=== PATIENT | male | born 1950 | race Caucasian/White ===

== ENCOUNTER 2016-11-19 12:06 | Observation (INO) | payer OTHER ==
[~2016-11-19] VITALS: Ht 175.3 cm; Wt 82.1 kg
[~2016-11-19 12:06] MED LIST: BENEMID500 MG PO; FE-2020 MG PO; FLEXERIL10 MG PO; FLOMAX 0.40.4 MG/CAP PO; FLOMAX0.4 MG PO; HCTZ 25MG TAB25 MG PO; INDOCIN SR 75MG75 MG PO; INDOMETHACIN PO; MILLIPRED DP5 MG PO; MULTI VITAMINS1 TAB PO; NIFEDIPINE10 M1 PO; OMEPRAZOLE20 MG PO; OMNICEF 300MG300 MG PO; PERCOCET 325 MG1 TAB PO; PRILOTC PO; PRINIVIL20 MG PO; PRINZIDE 25 MG-1 TAB PO; PROBENECID PO; PROCARDIA XL 6060 MG PO; PROSCAR 5MG5 MG PO; PROSCAR PO; SENORMIN50 MG PO; TENORMIN 5050 MG/TAB PO; ULTRAM 50MG TAB50 MG PO; VESICARE10 MG PO; ZYLOPRIM 300MG300 MG PO
[2016-11-19 13:12] VITALS: BP 153/93; PULSE 85
[2016-11-19 13:19] LABS: BASO % 0.4 % (0.0-2.0); GRAN # 6.6 (1.4-6.5); HEMATOCRIT 41.8 % (42.0-52.0); HEMOGLOBIN 14.5 g/dl (13.5-18.0); LYMPH # 1.1 (1.2-3.4); LYMPH % 12.8 % (20.0-51.0); MEAN CELL VOLUME 95 fl (80.0-100.0); MEAN CORPUSCULAR HEMOGLOBIN 33 pg (27.0-31.0); MEAN CORPUSCULAR HGB CONC 35 g/dl (33.0-37.0); MEAN PLATELET VOLUME 9.3 fl (7.4-10.4); MONO # 0.5 (0.1-0.6); PLATELET COUNT 206 K/mm3 (130-400); RED BLOOD COUNT 4.38 M/mm3 (4.20-5.60); REDCELL DISTRIBUTION WIDTH-CV 12.6 % (11.5-14.5); WHITE BLOOD COUNT 8.3 K/mm3 (4.8-10.8)
[2016-11-19 13:34] LABS: ALANINE AMINOTRANSFERASE 41 U/L (21-72); ALBUMIN 4.4 gm/dL (3.5-5.0); ALKALINE PHOSPHATASE 59 U/L (50-136); ANION GAP 12 mmol/L (7-16); BILIRUBIN,TOTAL 2.3 mg/dL (0.0-1.0); BLOOD UREA NITROGEN 10 mg/dL (9-20); C-REACTIVE PROTEIN 3.1 mg/dL (0.0-0.9); CALCIUM 9.3 mg/dL (8.4-10.2); CARBON DIOXIDE 25 mmol/L (22-30); CREATININE, serum 0.81 mg/dL (0.66-1.25); GLUCOSE 101 mg/dL (74-106); LIPASE 21 U/L (23-300); POTASSIUM 4.7 mmol/L (3.4-5.0); SODIUM 126 mmol/L (137-145); TOTAL PROTEIN 7.7 gm/dL (6.4-8.2)
[2016-11-19 13:35] LABS: PH 6 (5-8); SQUAMOUS EPITHELIAL 0-2 /hpf; URINE APPEARANCE Clear; URINE BACTERIA None Seen /hpf; URINE BILIRUBIN Negative (NEGATIVE); URINE BLOOD Negative (NEGATIVE); URINE COLOR Straw; URINE GLUCOSE Negative (NEGATIVE); URINE KETONE Negative (NEGATIVE); URINE RBC 0-2 /hpf; URINE UROBILINOGEN Negative (NEGATIVE); URINE WBC 0-2 /hpf
[2016-11-19 13:36] LABS: CHLORIDE 89 mmol/L (98-107)
[2016-11-19 13:44] LABS: TROPONIN-I < 0.012 ng/mL (0.000-0.034)
[2016-11-19] MEDS ORDERED: TENORMIN100 MG PO (17:10)
[2016-11-19 18:37] VITALS: BP 146/50; PULSE 54; TEMP 98.3
[2016-11-19 20:06] VITALS: BP 167/75; PULSE 80; TEMP 98.4
[2016-11-20] VITALS (10 sets, daily range): BP systolic 92–179; BP diastolic 45–95; PULSE 41–85; TEMP 98–99.2
[2016-11-20 08:19] LABS: BASO % 0.7 % (0.0-2.0); EOS % 0.2 % (0-4.0); GRAN # 3.9 (1.4-6.5); GRAN % 65.5 % (42.2-75.2); HEMATOCRIT 38.8 % (42.0-52.0); HEMOGLOBIN 13.4 g/dl (13.5-18.0); LYMPH # 1.3 (1.2-3.4); LYMPH % 20.9 % (20.0-51.0); MEAN CELL VOLUME 96 fl (80.0-100.0); MEAN CORPUSCULAR HEMOGLOBIN 33 pg (27.0-31.0); MEAN CORPUSCULAR HGB CONC 35 g/dl (33.0-37.0); MEAN PLATELET VOLUME 9.7 fl (7.4-10.4); MONO # 0.7 (0.1-0.6); PLATELET COUNT 192 K/mm3 (130-400); RED BLOOD COUNT 4.04 M/mm3 (4.20-5.60); REDCELL DISTRIBUTION WIDTH-CV 12.9 % (11.5-14.5)
[2016-11-20 08:38] LABS: ADJUSTED CALCIUM 9.1 mg/dL (8.4-10.2); ALBUMIN 3.5 gm/dL (3.5-5.0); BILIRUBIN,TOTAL 1.8 mg/dL (0.0-1.0); CALCIUM 8.7 mg/dL (8.4-10.2); CREATININE, serum 0.72 mg/dL (0.66-1.25); MAGNESIUM 1.8 mg/dL (1.6-2.3); PHOSPHOROUS 3.3 mg/dL (2.5-4.5); POTASSIUM 4.1 mmol/L (3.4-5.0); TOTAL PROTEIN 6.5 gm/dL (6.4-8.2)
[2016-11-20 08:49] LABS: TROPONIN-I 0.016 ng/mL (0.000-0.034)
[2016-11-20 09:08] LABS: THYROID STIMULATING HORMONE 0.432 uIU/mL (0.465-4.680)
[2016-11-21 04:02] VITALS: BP 157/77; PULSE 84; TEMP 98.4
[2016-11-21 07:28] LABS: BASO % 0.5 % (0.0-2.0); EOS % 0.3 % (0-4.0); GRAN # 3.5 (1.4-6.5); GRAN % 58.2 % (42.2-75.2); HEMATOCRIT 39.4 % (42.0-52.0); HEMOGLOBIN 13.4 g/dl (13.5-18.0); LYMPH # 1.7 (1.2-3.4); LYMPH % 27.3 % (20.0-51.0); MEAN CELL VOLUME 97 fl (80.0-100.0); MEAN CORPUSCULAR HEMOGLOBIN 33 pg (27.0-31.0); MEAN CORPUSCULAR HGB CONC 34 g/dl (33.0-37.0); MEAN PLATELET VOLUME 9.8 fl (7.4-10.4); MONO # 0.8 (0.1-0.6); MONO % 13.4 % (1.7-9.3); PLATELET COUNT 204 K/mm3 (130-400); RED BLOOD COUNT 4.05 M/mm3 (4.20-5.60)
[2016-11-21 07:29] LABS: CALCIUM 8.8 mg/dL (8.4-10.2); CREATININE, serum 0.65 mg/dL (0.66-1.25); POTASSIUM 3.8 mmol/L (3.4-5.0)
[2016-11-21 07:31] VITALS: BP 176/95; PULSE 89; TEMP 98.3
[2016-11-21 09:56] VITALS: BP 173/88; BP 185/92; PULSE 75; PULSE 79
[2016-11-21 09:57] VITALS: BP 155/99; PULSE 87
[2016-11-21] MEDS ORDERED: MUCINEX 60600 MG/TA1 PO (10:42)
[2016-11-21] MEDS ORDERED: ZESTRIL 10MG10 MG PO (11:06)
[2016-11-21 11:55] VITALS: BP 170/97; PULSE 84; TEMP 98.1
== END 2016-11-21 15:55 | disposition home or self-care (01) ==
LOC: COL.ER 12:06 → MEDICAL 15:30
PROVIDERS: Emergency Medicine; Internal Medicine; Physician Assistant
DX: I95.1 Orthostatic hypotension (principal); R00.8 Other abnormalities of heart beat; R10.13 Epigastric pain; R11.2 Nausea with vomiting, unspecified; E87.1 Hypo-osmolality and hyponatremia; E86.0 Dehydration; K80.20 Calculus of gallbladder without cholecystitis without obstruction; J06.9 Acute upper respiratory infection, unspecified; I10 Essential (primary) hypertension; N40.0 Benign prostatic hyperplasia without lower urinary tract symptoms; K21.9 Gastro-esophageal reflux disease without esophagitis; Z87.891 Personal history of nicotine dependence
CPT/HCPCS: 99223-AI; 99232-AI; C9113; G0378; J1650; J2405; J7030; Q9967

== ENCOUNTER 2023-11-08 06:37 | Emergency (ER) | payer MEDICARE ==
[~2023-11-08] VITALS: Ht 177.8 cm; Wt 68.2 kg
[~2023-11-08 06:37] MED LIST changes: +MUCINEX 60600 MG/TA1 PO; +TENORMIN100 MG PO; +ZESTRIL 10MG10 MG PO
[2023-11-08 06:48] VITALS: TEMP 98.1
[2023-11-08 07:13] LABS: BASO # 0.1 K/mm3 (0.0-0.2); BASO % 0.7 % (0.0-2.0); EOS % 0.3 % (0.0-4.0); GRAN # 4.9 K/mm3 (1.4-6.5); GRAN % 71.6 % (42.2-75.2); HEMATOCRIT 41.1 % (42.0-52.0); HEMOGLOBIN 13.8 g/dl (13.5-18.0); LYMPH # 1.4 K/mm3 (1.2-3.4); LYMPH % 20.7 % (20.0-51.0); MEAN CELL VOLUME 93 fl (80.0-100.0); MEAN CORPUSCULAR HEMOGLOBIN 31 pg (27-31); MEAN CORPUSCULAR HGB CONC 34 g/dl (33.0-37.0); MEAN PLATELET VOLUME 9.7 fl (7.4-10.4); MONO # 0.4 K/mm3 (0.1-0.6); MONO % 6.3 % (1.7-9.3); PLATELET COUNT 247 K/mm3 (130-400); RED BLOOD COUNT 4.43 M/mm3 (4.20-5.60); REDCELL DISTRIBUTION WIDTH-CV 15.5 % (11.5-14.5)
[2023-11-08 07:21] LABS: INR 1.1 (0.8-3.0); PROTHROMBIN TIME 11.8 SECONDS (9.7-12.8)
[2023-11-08 07:24] LABS: PARTIAL THROMBOPLASTIN TIME 31.9 SECONDS (26.0-37.0)
[2023-11-08 07:31] LABS: ALANINE AMINOTRANSFERASE 14 U/L (0-55); ALBUMIN 3.8 gm/dL (3.4-4.8); ALCOHOL(ethanol),MEDICAL < 10 mg/dL (0-10); ALKALINE PHOSPHATASE 86 U/L (40-150); ANION GAP 11 mmol/L (7-16); AST,SGOT 14 U/L (5-34); BILIRUBIN,TOTAL 0.8 mg/dL (0.2-1.2); BLOOD UREA NITROGEN 14 mg/dL (8-26); CALCIUM 9.1 mg/dL (8.4-10.2); CARBON DIOXIDE 21 mmol/L (23-31); CHLORIDE 102 mmol/L (98-107); CREATININE, serum 0.83 mg/dL (0.72-1.25); GLUCOSE 115 mg/dL (70-99); POTASSIUM 4.3 mmol/L (3.5-4.5); SODIUM 134 mmol/L (136-145); TOTAL PROTEIN 6.8 gm/dL (6.2-8.1)
[2023-11-08 07:43] LABS: TROPONIN-I 0.018 ng/mL (0.00-0.033)
[2023-11-08 07:43] LABS: COLLECTION METHOD CLEAN CATCH
[2023-11-08 07:57] LABS: TRICYCLIC ANTIDEPRESS URINE NEGATIVE (NEGATIVE)
[2023-11-08 08:16] LABS: URINE APPEARANCE Clear (CLEAR/HAZY); URINE COLOR Yellow (YELLOW)
[2023-11-08 08:17] LABS: PH >= 9.0 (5.0-8.5); SQUAMOUS EPITHELIAL 0-2 /hpf (0-10); URINE BLOOD TRACE-INTACT (NEGATIVE); URINE GLUCOSE Negative (NEGATIVE); URINE KETONE 4+ (NEGATIVE); URINE NITRATE Negative (NEGATIVE); URINE PROTEIN(semi-quant) 2+ (NEGATIVE); URINE RBC 0-2 /hpf (0-2)
[2023-11-08 09:30] VITALS: BP 161/90; PULSE 73
== END 2023-11-08 09:29 | disposition short-term general hospital (02) ==
LOC: COL.ER 06:37
PROVIDERS: Emergency Medicine
DX: I63.212 Cerebral infarction due to unspecified occlusion or stenosis of left vertebral artery (principal); I10 Essential (primary) hypertension
CPT/HCPCS: J3101; Q9967

== ENCOUNTER 2023-11-11 07:09 | Emergency (ER) | payer MEDICARE ==
[~2023-11-11] VITALS: Ht 175.3 cm; Wt 65.9 kg
[2023-11-11 07:29] VITALS: TEMP 97.7
[2023-11-11 07:54] LABS: BASO # 0.1 K/mm3 (0.0-0.2); BASO % 0.6 % (0.0-2.0); EOS % 0.5 % (0.0-4.0); GRAN # 5.8 K/mm3 (1.4-6.5); GRAN % 70.5 % (42.2-75.2); HEMOGLOBIN 12.2 g/dl (13.5-18.0); LYMPH # 1.7 K/mm3 (1.2-3.4); LYMPH % 20.3 % (20.0-51.0); MEAN CELL VOLUME 90 fl (80.0-100.0); MEAN CORPUSCULAR HEMOGLOBIN 31 pg (27-31); MEAN CORPUSCULAR HGB CONC 35 g/dl (33.0-37.0); MEAN PLATELET VOLUME 9.4 fl (7.4-10.4); MONO # 0.6 K/mm3 (0.1-0.6); MONO % 7.7 % (1.7-9.3); PLATELET COUNT 225 K/mm3 (130-400); RED BLOOD COUNT 3.91 M/mm3 (4.20-5.60); REDCELL DISTRIBUTION WIDTH-CV 15.5 % (11.5-14.5)
[2023-11-11 08:01] LABS: HEMATOCRIT 35.2 % (42.0-52.0)
[2023-11-11 08:05] LABS: ALBUMIN 3.6 gm/dL (3.4-4.8); BILIRUBIN,TOTAL 1.9 mg/dL (0.2-1.2); CALCIUM 8.8 mg/dL (8.4-10.2); CREATININE, serum 1.03 mg/dL (0.72-1.25); MAGNESIUM 1.8 mg/dL (1.6-2.6); PHOSPHOROUS 3.5 mg/dL (2.3-4.7); POTASSIUM 4.3 mmol/L (3.5-4.5); TOTAL PROTEIN 6.3 gm/dL (6.2-8.1)
[2023-11-11 08:13] LABS: TROPONIN-I 0.044 ng/mL (0.00-0.033)
[2023-11-11 10:40] VITALS: BP 175/91; PULSE 51
== END 2023-11-11 10:40 | disposition home or self-care (01) ==
LOC: COL.ER 07:09
PROVIDERS: Emergency Medicine
DX: G45.9 Transient cerebral ischemic attack, unspecified (principal); Z87.891 Personal history of nicotine dependence
CPT/HCPCS: Q9967

== ENCOUNTER 2024-07-02 19:28 | Emergency (ER) | payer MEDICARE ==
[~2024-07-02] VITALS: Ht 172.7 cm; Wt 70.5 kg
[2024-07-02 19:32] VITALS: TEMP 98.1
[2024-07-02 20:27] LABS: COLLECTION METHOD CLEAN CATCH
[2024-07-02 20:37] LABS: BASO # 0.1 K/mm3 (0.0-0.2); BASO % 0.6 % (0.0-2.0); EOS # 0.1 K/mm3 (0.0-0.7); EOS % 0.5 % (0.0-4.0); GRAN # 7.5 K/mm3 (1.4-6.5); GRAN % 67.5 % (42.2-75.2); HEMOGLOBIN 12.1 g/dl (13.5-18.0); LYMPH # 2.4 K/mm3 (1.2-3.4); LYMPH % 21.3 % (20.0-51.0); MEAN CELL VOLUME 91 fl (80.0-100.0); MEAN CORPUSCULAR HEMOGLOBIN 31 pg (27-31); MEAN CORPUSCULAR HGB CONC 34 g/dl (33.0-37.0); MEAN PLATELET VOLUME 9.5 fl (7.4-10.4); MONO # 1.1 K/mm3 (0.1-0.6); MONO % 9.8 % (1.7-9.3); PLATELET COUNT 251 K/mm3 (130-400); RED BLOOD COUNT 3.88 M/mm3 (4.20-5.60); REDCELL DISTRIBUTION WIDTH-CV 14.1 % (11.5-14.5)
[2024-07-02 20:38] LABS: HEMATOCRIT 35.3 % (42.0-52.0)
[2024-07-02 20:43] LABS: URINE APPEARANCE TURBID (CLEAR/HAZY); URINE BLOOD 3+ (NEGATIVE); URINE COLOR YELLOW (YELLOW); URINE GLUCOSE NEGATIVE (NEGATIVE); URINE KETONE NEGATIVE (NEGATIVE); URINE NITRATE NEGATIVE (NEGATIVE); URINE PROTEIN(semi-quant) 2+ (NEGATIVE); URINE UROBILINOGEN 0.2 E.U/dL (0.2-1.0)
[2024-07-02] MEDS ORDERED: DAZIDOX10 MG PO (20:45)
[2024-07-02 20:46] LABS: ALBUMIN 3.6 g/dL (3.4-4.8); BILIRUBIN,TOTAL 0.6 mg/dL (0.2-1.2); CALCIUM 8.6 mg/dL (8.4-10.2); CREATININE, serum 0.8 mg/dL (0.72-1.25); POTASSIUM 4.3 mEq/L (3.5-4.5); TOTAL PROTEIN 6.5 g/dl (6.2-8.1)
[2024-07-02] MEDS ORDERED: ASPIRIN 81M81 MG/TA2 PO (20:46)
[2024-07-02] MEDS ORDERED: LIPITOR 40MG TA40 MG PO (20:46)
[2024-07-02] MEDS ORDERED: ALTACE 10MG TAB10 MG PO (20:46)
[2024-07-02] MEDS ORDERED: Iohexol 300 - 100 ML VIAL IV ONE (21:24)
[2024-07-02] MEDS ORDERED: NS 50 ML IV ONE (21:25)
[2024-07-02] MEDS ORDERED: Sulfamethoxazole/Trimethoprim 800-160 MG TAB PO ONE (22:30)
[2024-07-02] MEDS ORDERED: BACTRIM DS 8001 TAB PO (22:39)
[2024-07-02 22:50] VITALS: BP 144/79; PULSE 65
== END 2024-07-02 22:50 | disposition home or self-care (01) ==
LOC: COL.ER 19:28
PROVIDERS: Nurse Practitioner
DX: N39.0 Urinary tract infection, site not specified (principal); N40.1 Benign prostatic hyperplasia with lower urinary tract symptoms; R39.15 Urgency of urination
CPT/HCPCS: Q9967

== ENCOUNTER 2024-07-06 13:00 | Emergency (ER) | payer MEDICARE ==
[~2024-07-06] VITALS: Ht 172.7 cm; Wt 70.5 kg
[~2024-07-06 13:00] MED LIST changes: +ALTACE 10MG TAB10 MG PO; +ASPIRIN 81M81 MG/TA2 PO; +BACTRIM DS 8001 TAB PO; +DAZIDOX10 MG PO; +LIPITOR 40MG TA40 MG PO
[2024-07-06] MEDS ORDERED: Acetaminophen 500 MG TAB PO ONE (15:00)
[2024-07-06] MEDS ORDERED: LR 1,000 ML IV ONE (15:00)
[2024-07-06 15:26] LABS: COLLECTION METHOD CLEAN CATCH
[2024-07-06 15:31] LABS: HEMOGLOBIN 12.2 g/dl (13.5-18.0); MEAN CELL VOLUME 92 fl (80.0-100.0); MEAN CORPUSCULAR HEMOGLOBIN 31 pg (27-31); MEAN CORPUSCULAR HGB CONC 34 g/dl (33.0-37.0); MEAN PLATELET VOLUME 9.2 fl (7.4-10.4); PLATELET COUNT 250 K/mm3 (130-400); RED BLOOD COUNT 3.98 M/mm3 (4.20-5.60); REDCELL DISTRIBUTION WIDTH-CV 14.1 % (11.5-14.5)
[2024-07-06 15:32] LABS: PH 5.5 (5.0-8.5); URINE APPEARANCE CLEAR (CLEAR/HAZY); URINE BLOOD TRACE (NEGATIVE); URINE COLOR YELLOW (YELLOW); URINE GLUCOSE NEGATIVE (NEGATIVE); URINE KETONE TRACE (NEGATIVE); URINE NITRATE NEGATIVE (NEGATIVE); URINE PROTEIN(semi-quant) 1+ (NEGATIVE); URINE UROBILINOGEN 0.2 E.U/dL (0.2-1.0)
[2024-07-06 15:36] LABS: HEMATOCRIT 36.4 % (42.0-52.0)
[2024-07-06 15:48] LABS: ALANINE AMINOTRANSFERASE 11 U/L (0-55); ALBUMIN 3.6 g/dL (3.4-4.8); ALKALINE PHOSPHATASE 83 U/L (40-150); ANION GAP 11 mmol/L (7-16); AST,SGOT 15 U/L (5-34); BILIRUBIN,TOTAL 0.7 mg/dL (0.2-1.2); BLOOD UREA NITROGEN 16 mg/dL (8-26); C-REACTIVE PROTEIN 6.15 mg/dL (0.00-0.50); CHLORIDE 102 mEq/L (98-107); CREATININE, serum 1.36 mg/dL (0.72-1.25); GLUCOSE 107 mg/dL (70-99); SODIUM 134 mEq/L (136-145); TOTAL PROTEIN 7.3 g/dl (6.2-8.1)
[2024-07-06 15:58] LABS: TROPONIN-I < 0.010 ng/mL (0.00-0.033)
[2024-07-06 16:07] LABS: BAND 2 % (0-10); LYMPHOCYTE 6 % (20.0-51.0); NEUTROPHILS 77 % (42.0-75.2)
[2024-07-06] MEDS ORDERED: VANTIN 200200 MG/TAB PO (16:28)
[2024-07-06] MEDS ORDERED: cefTRIAXone 2 G in Water For Injection,Sterile 20 ML IV ONE (16:30)
[2024-07-06 16:51] VITALS: BP 134/68; PULSE 70; TEMP 101.1
== END 2024-07-06 17:15 | disposition home or self-care (01) ==
LOC: COL.ER 13:00
PROVIDERS: Emergency Medicine
DX: N39.0 Urinary tract infection, site not specified (principal); Z87.891 Personal history of nicotine dependence
CPT/HCPCS: J0696; J7120